=== PATIENT | female | born 1985 | race Two or more races ===

== ENCOUNTER → 2021-04-27 | Outpatient (CLI) | payer BC ==
[2021-04-28 15:13] LABS: ALBUM 3.6 g/dL (2.9-4.4); ALPHA 1 0.3 g/dL (0.0-0.4); ALPHA 2 0.8 g/dL (0.4-1.0); BETA 1.4 g/dL (0.7-1.3); GAMMA 1.5 g/dL (0.4-1.8); PROTEIN TOTAL 7.6 g/dL (6.0-8.5); SPEP AG RATIO 0.9 (0.7-1.7)
[2021-04-28 20:10] LABS: ANA INTERP Positive (.)
== END ==
LOC: LAB 15:09
PROVIDERS: ATTEND Nurse Practitioner Family
DX: H47.10 Unspecified papilledema (principal); H53.9 Unspecified visual disturbance
CPT/HCPCS: 36415; 84165; 84443; 85651; 86038; 86140

== ENCOUNTER → 2021-05-10 | Outpatient (CLI) | payer BC ==
[~2021-05-10] MED LIST: LIDOCAINE WITH 8.4% SOD BICARB 3 ML DISP.SYRIN. INJ ONE
--- NOTE | 2021-05-10 14:00 | RAD ---
EXAM: Brain and orbit MRI without contrast. HISTORY: Papilledema. Vision changes. TECHNIQUE: Multiplanar, multisequence magnetic resonance imaging of the brain and orbits was performe d without contrast. COMPARISON: None. FINDINGS: There is no restricted diffusion to suggest acute or subacute infarction. There is no susce ptibility effect to suggest hemorrhage. There is no mass effect or midline shift. There is no hydroce phalus. There are few tiny foci of FLAIR hyperintensity within the frontal subcortical white matter w hich are likely artifactual. No convincing suspicious white matter lesion is seen. The sella and pitu itary are normal in size. 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 There is a small left maxillary sinus mucous retention cyst. The mastoid air cells are clear. No orbital mass is seen. The optic nerves are symmetric in size and there is symmetric opt ic nerve sheath fluid. The extraocular muscles, globes and lenses are unremarkable. IMPRESSION: No acute intracranial finding. No convincing evidence of intracranial hypertension. Electronically signed by: Ai May MD (05/10/2021 9:34 AM) [facility]
== END ==
LOC: MRI 09:36
PROVIDERS: ATTEND Psychiatry & Neurology Neurology with Special Qualifications in Child Neurology
DX: H47.10 Unspecified papilledema (principal); J34.89 Other specified disorders of nose and nasal sinuses
CPT/HCPCS: 70551